=== PATIENT | male | born 1980 | race African-American/Black ===

== ENCOUNTER → 2020-02-04 | Outpatient (CLI) | payer OTHER ==
[2014-09-22 02:15] VITALS: BP 138/80
[~2020-02-04] MED LIST: HYDR-2155 PO; SULF1TAB24 PO
--- NOTE | 2020-02-04 10:47 | RAD ---
2 views the right hand without comparison for pain. FINDINGS: There is no fracture, dislocation, or acute osseous abnormality identified. 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 There is ulnar negative variance noted. IMPRESSION: 1. No acute osseous abnormality. Electronically signed by: Musa Muro MD (02/04/2020 10:44 AM) [id number]
--- NOTE | 2020-02-04 10:47 | RAD ---
2 views the right knee without comparison for pain. FINDINGS: No fracture, dislocation, or acute osseous abnormalities identified. Mild degenerative changes involving the patellofemoral joint. Minimal atherosclerosis of the popliteal artery. No radiopaque foreign bodies. IMPRESSION: 1. No acute osseous abnormality. Electronically signed by: Musa Muro MD (02/04/2020 10:44 AM) [id number]
== END | disposition home or self-care (01) ==
LOC: DXRAD 08:52
PROVIDERS: ATTEND Surgery
DX: M17.11 Unilateral primary osteoarthritis, right knee (principal); M19.041 Primary osteoarthritis, right hand; I70.8 Atherosclerosis of other arteries
CPT/HCPCS: 73120; 73560